=== PATIENT | female | born 1970 | race Caucasian/White ===

== ENCOUNTER 2023-06-06 17:42 | Emergency (ER) | payer MEDICARE, MEDICAID ==
[~2023-06-06] VITALS: Ht 165.1 cm; Wt 68.0 kg
[~2023-06-06 17:42] MED LIST: HYDR-4005 PO; LISI20TA31 PO; PROT40 PO
[2023-06-06 17:51] VITALS: BP 123/80; PULSE 95; RESP 20; TEMP 98.1; O2SAT 98
== END 2023-06-06 21:23 | disposition home or self-care (01) ==
LOC: ER 17:42
DX: M25.571 Pain in right ankle and joints of right foot (principal); F31.9 Bipolar disorder, unspecified; E78.00 Pure hypercholesterolemia, unspecified; Z98.890 Other specified postprocedural states
CPT/HCPCS: 73610; 99283

== ENCOUNTER 2024-07-19 08:55 | Emergency (ER) | payer MEDICARE, MEDICAID ==
[~2024-07-19] VITALS: Ht 167.6 cm; Wt 96.0 kg
[2024-07-19 09:07] VITALS: O2SAT 98
[2024-07-19] MEDS ORDERED: AMOX1TAB16 MT (10:09)
[2024-07-19 10:35] VITALS: BP 160/72; PULSE 85; RESP 16; TEMP 36.7; O2SAT 98
== END 2024-07-19 10:37 | disposition home or self-care (01) ==
LOC: ER 08:55
DX: J32.9 Chronic sinusitis, unspecified (principal); E78.00 Pure hypercholesterolemia, unspecified; F31.9 Bipolar disorder, unspecified; I10 Essential (primary) hypertension; Z79.899 Other long term (current) drug therapy; Z98.890 Other specified postprocedural states
CPT/HCPCS: 99283

== ENCOUNTER 2025-03-17 03:25 | Emergency (ER) | payer MEDICARE, MEDICAID ==
[~2025-03-17] VITALS: Ht 170.2 cm; Wt 96.0 kg
[~2025-03-17 03:25] MED LIST changes: +AMOX1TAB16 MT
[2025-03-17 03:57] VITALS: O2SAT 97
[2025-03-17 05:04] LABS: HEMATOCRIT. 41.9 % (36.0-48.0); HEMOGLOBIN. 14.0 g/dL (12.0-16.0); MEAN PLATELET VOLUME 8.6 fl (7.4-10.4); PLATELET 314 x1000/uL (130-400); RED BLOOD CELL COUNT 4.72 mill/uL (4.2-5.4); RED CELL DISTRIBUTION WIDTH 13.3 % (11.6-14.6)
[2025-03-17 05:23] LABS: CREATININE 0.8 mg/dL (0.6-1.0)
[2025-03-17 05:24] LABS: PROTEIN TOTAL 6.8 g/dL (6.0-8.3); UREA NITROGEN BLOOD 10 mg/dL (9-23)
[2025-03-17 05:25] LABS: ASPARTATE AMINOTRANSFERASE 18 IU/L (<34)
[2025-03-17 05:26] LABS: BILIRUBIN DIRECT < 0.1 mg/dL (<=3.0); BILIRUBIN TOTAL 0.4 mg/dL (0.1-1.0)
[2025-03-17 05:50] LABS: ATYPICAL LYMPHOCYTES 5; BAND% 2.0 % (1.0-6.0); EOSINOPHILS % MANUAL 4.0 % (0.0-5.0); LYMPHOCYTES % MANUAL 34.0 % (20.0-60.0); MONOCYTES % MANUAL 2.0 % (2.0-8.0); NEUTROPHILS % MANUAL 53.0 % (45.0-75.0); PLATELET ESTIMATE NORMAL
[2025-03-17 05:58] LABS: CLARITY URINE CLOUDY (CLEAR); COLOR URINE YELLOW (YELLOW); GLUCOSE URINE NEGATIVE (NEGATIVE); KETONES URINE NEGATIVE (NEGATIVE); LEUKOCYTE ESTERASE URINE 1+ (NEGATIVE); NITRITE URINE NEGATIVE (NEGATIVE); OCCULT BLOOD URINE NEGATIVE (NEGATIVE); PH URINE 6.0 (4.5-8.0); PROTEIN URINE NEGATIVE (NEGATIVE); SPECIFIC GRAVITY URINE 1.015 (1.005-1.030); UROBILINOGEN URINE 0.2 E.U./dL (0.2-1.0)
[2025-03-17 06:09] LABS: BACTERIA URINE TRACE; RBC URINE 0-2 /hpf (0-2); SQUAMOUS EPITHELIAL CELL URINE FEW /lpf (RARE/1+)
[2025-03-17 06:14] VITALS: BP 106/72; PULSE 79; RESP 14; TEMP 36.6; O2SAT 97
== END 2025-03-17 06:16 | disposition home or self-care (01) ==
LOC: ER 03:50
DX: G89.29 Other chronic pain (principal); R10.A1 Flank pain, right side; M54.9 Dorsalgia, unspecified; Z79.899 Other long term (current) drug therapy
CPT/HCPCS: 36415; 74176; 80048; 80076; 81003; 85025; 99284